=== PATIENT | male | born 1980 | race Caucasian/White ===

== ENCOUNTER 2024-08-25 19:08 | Emergency (ER) | payer MEDICAID, SELFPAY ==
[2024-08-25 19:12] VITALS: BP 137/74; PULSE 79; RESP 16; TEMP 37.1; O2SAT 98; BMI 34.7
--- NOTE | 2024-08-25 19:35 | [facility].EDGENADL ---
Discharge Plan Disposition Patient Disposition: Home, Self-Care Prescriptions Prescriptions: New sulfamethoxazole-trimethoprim [Bactrim DS] 800-160 mg tablet 1 tab PO BID 7 Days Qty: 14 0RF Referrals Follow up/Referrals: Provider,Referral, MD [Primary Care Provider] - See instructions Activity Restrictions/Add. Instructions Additional Instructions/Restrictions: Call your family doctor to establish care for this visit to the emergency department and schedule follow-up within 48 hours to ensure improvement. If you have any worsening of your condition or any other concerning signs or symptoms, return to the emergency department or your primary care doctor for further evaluation. Bactrim twice daily for 7 days with plenty of food and water Clinical Impressions Clinical Impression: Cellulitis of leg, right Instructions Patient Instructions: DI for Skin Abscess Discharge ED Provider: Mor Gates General Adult HPI General Chief complaint: Skin/Abscess/Foreign Body Stated complaint: poss spider bite RT leg Time Seen by Provider: 08/25/24 19:18 Mode of Arrival: Ambulatory Source of Information: Patient Limitations: No Limitations Description of Symptoms (Recalled from ER Triage Doc. by RN): Pt presents for evaluation of spider bite to right garza. Pt states it has been there for three days, and is about the size of a quater. Pt is a diabetic History of Present Illness HPI narrative: Please note that above description of symptoms, in this electronic medical record under categorization of recalled from ER triage doctor by RN are reflective of an initial nursing assessment, however, is not reflective of my full history and physical exam that was personally taken and clarified. Consequentially, this preceding description of symptoms, which may include the patient's categorized chief complaint in the EMR, do not reflect my personal clinical impression, and the ultimate description of history of present illness and patient stated complaints should be deferred to this section of the note. Unless stated otherwise or congruent with this section of the note, additional signs, symptoms, or incongruence should be interpreted as inaccurate with my clinical impression. Related Data Previous Rx's ?Medication ?Instructions ?Recorded sulfamethoxazole 800 1 tab PO BID 7 days #14 tabs 08/25/24 mg-trimethoprim 160 mg tablet (Bactrim DS) Allergies Allergy/AdvReac Type Severity Reaction Status Date / Time No Known Allergies Allergy Verified 08/25/24 19:26 [facility] Disclaimer: The information contained in this section may have been updated after the patient was seen, as this information can be updated by other users. Social History Smoking Status: Current every day smoker alcohol intake: never current occupational status: employed Travel in the last 8 weeks: None ROS Obtained: Yes All systems reviewed & no additional complaints except as documented Physical Exam General General appearance: alert Head Head exam: atraumatic and normocephalic Eye Eye exam: Present normal appearance, PERRL and EOMI Neck Neck exam: Present normal inspection, full ROM and trachea midline Respiratory Respiratory exam: Absent respiratory distress, wheezes, stridor, accessory muscle use or prolonged expiratory phase Cardiovascular Cardiovascular exam: Present other (Pulses equal symmetric in upper and lower extremities) Abdominal Exam Abdominal exam: Present soft; Absent distention, tenderness or pulsatile mass Extremities Exam Extremities exam: Present other (2 cm circular area of erythema without obvious fluctuance just lateral to right garza at mid tibia.); Absent edema Neurological Exam Neurological exam: Present alert, oriented X3 and CN II-XII intact; Absent motor sensory deficit Skin Skin exam: Present warm and dry; Absent diaphoresis or erythema Medical Decision Making Medical Records Medical records reviewed: Yes I reviewed the patient's medical records. Screening: Per USPSTF and CDC recommendations, given the prevalence of disease in our region, it is our hospital?s policy to screen for HIV and viral Hepatitis for all patients aged 18 and over and those with ongoing risk factors. Jacobo Inquiry Pt receiving controlled substance: No Jacobo was queried for this patient: No Vital Signs: 08/25/24 19:12 Temperature 98.7 F Temperature Source Oral Pulse Rate [Right] 79 Respiratory Rate 16 Blood Pressure [Right Arm] 137/74 Blood Pressure Mean [Right Arm] 95 Blood Pressure Source [Right Arm] Automatic Cuff Blood Pressure Position [Right Arm] Sitting 02 Sat by Pulse Oximetry 98 Oxygen Delivery Method Room Air Orders (Tests/Meds): ED MEDICATIONS Generic Name Dose Route Start Last Admin Trade Name Freq PRN Reason Stop Dose Admin Trimethoprim/Sulfamethoxazole 1 each 08/25/24 19:25 Sulfa/Trimethoprim 1 Tablet PO 08/25/24 19:26 ONCE ONE ORDERS Category Date Time Status POCUS Point of Care (ER Only) Stat Exams 08/25/24 19:25 Ordered Medical Decision Narrative: 44-year-old male no relevant medical history presenting with cellulitis of right garza after presumed spider bite. States that has been getting worse for the past 3 to 4 days, has not drained anything other than clear liquid. No fevers or chills, but the redness does seem to be growing. No obvious trauma to the area. No history of abscesses in the past. History was obtained via conversation with patient and significant other. On arrival, patient hemodynamically stable, alert, oriented x4, appropriate, GCS 15, moving all extremities spontaneously, pupils equal and reactive to light. Full physical exam performed and significant for very clinically well-appearing patient. He does have 2 cm circular area of erythema without obvious fluctuance in the mid garza just lateral to the right tibia. Warm, nontender. Differential includes cellulitis, abscess, among others. Because patient has no systemic signs or symptoms, laboratory work including hematologic workup and blood cultures was considered, but not deemed necessary. Bedside [id number] ultrasound was performed. This was consistent with cellulitis without subcutaneous abscess, so patient was given first dose of Bactrim here. Rest of Bactrim was sent to pharmacy of choice. Because patient at baseline without signs or symptoms of clinical decompensation, deemed appropriate for discharge. Results were relayed to patient who voiced understanding and were agreeable to outpatient management and follow up. I discussed my clinical impression with patient and answered all questions. At this time, the evidence for any other entities in the differential is insufficient to warrant any further testing or ED observation. This was explained as well. Advisory was given that persistent or worsening symptoms require further evaluation. I confirmed the understanding of this discussion. Puppet Master disclaimer Much of this encounter note is an electronic diamond picker spoken language to printed text. Electronic diamond picker of the spoken language may permit errors. Although I have reviewed the note, some errors may still exist. Procedures Limited Ultrasound Indication:: Limited soft tissue ultrasound Indication: Soft tissue redness, swelling Identified structures: Location: Right lower leg Findings: Cellulitis without abscess right lower leg Impression: Cellulitis without abscess of the right lower leg Images were saved to permanent archive The study was technically adequate Soft Tissue CPT Codes: CPT Neck: 34992-35 CPT Upper extremity: 68927-65 CPT Axilla: 36979-61 CPT Chest wall: 35838-91 CPT Breast: 56106-34-QN/LT (complete), 39043-59-IW/LT (limited), CPT Upper Back: 89603-01 CPT Lower Back: 55906-94 CPT Abdominal Wall: 66363-22 CPT Pelvic Wall: 00562-47 CPT Lower Extremity: 93774-26 CPT Other Soft Tissue: 24932-23 This study was performed by me, and I personally interpreted all images/videos. Based on my clinical judgement, these images were adequate and did not necessitate further imaging. Critical Care Critical Care Time Critical Care Time: No
[2024-08-25 19:48] VITALS: BP 137/74; PULSE 79; RESP 16; TEMP 36.7; O2SAT 98
[2024-08-25] MEDS: SULFA/TRIMETHOPRIM 1 TABLET 1 EACH PO (19:51)
== END 2024-08-25 19:51 | disposition home or self-care (01) ==
LOC: ER 19:46
PROVIDERS: Emergency Provider Emergency Medicine
DX: L03.115 Cellulitis of right lower limb (principal); R22.41 Localized swelling, mass and lump, right lower limb
CPT/HCPCS: 99283